=== PATIENT | female | born 1980 | race Two or more races ===

== ENCOUNTER → 2024-08-12 | Outpatient (CLI) | payer MEDICAID, SELFPAY ==
--- NOTE | 2024-08-12 14:30 | XR_ITS ---
Examination: Diagnostic digital mammography, unilateral, left Computer aided detection 3-D breast Tomosynthesis, unilateral Date and time of exam: August 12, 2024 1444 hours INDICATIONS: Mammogram October 17, 2023 20 mm focal asymmetry outer left breast CC view, 12 cm from the nipple Technique: Nonmagnified MLO, CC views of the left breast have been obtained, reconstructed from 3-D Tomosynthesis images. R2 computer aided detection program utilized for evaluation of suspicious masses and/or abnormal calcifications. 3-D Tomosynthesis images obtained. Findings: Scattered areas of fibroglandular density Benign calcifications. No interval suspicious masses Impression: BI-RADS category 2: Benign findings Recommend yearly follow-up mammography
== END | disposition home or self-care (01) ==
LOC: CDIM 14:34
PROVIDERS: PCP Physician Assistant; Referring Provider Physician Assistant; Visit Provider Physician Assistant
DX: R92.322 Mammographic fibroglandular density, left breast (principal); R92.8 Other abnormal and inconclusive findings on diagnostic imaging of breast
CPT/HCPCS: 77061; 77065; G0279

== ENCOUNTER 2024-08-16 14:51 | Emergency (ER) | payer MEDICAID, SELFPAY ==
[2024-08-16 15:07] VITALS: BP 159/101; PULSE 119; RESP 20; TEMP 38.8; O2SAT 92; BMI 37.5
--- NOTE | 2024-08-16 15:16 | XR_ITS ---
Examination: PA lateral chest 2 views TECHNIQUE: Upright PA lateral chest 2 views Exam date and time: 03/16/2024 1525 hours Comparison June 08, 2024 INDICATIONS: Shortness of breath coughing today. FINDINGS: Suspicious for early left base pneumonia obscuring detail left hemidiaphragm Right lung clear Normal heart size IMPRESSION: Suspicious for early left base pneumonia
--- NOTE | 2024-08-16 15:39 | EKG_ITS ---
[facility] Test Date: 2024-08-16 Pat Name: KATHERIN ALCARAZ Department: Room: - Gender: Female [employer]: : 1980 Requested By: Shyann Yan ([facility]) Samreen Order Number: [id number] Reading MD: Shyann Yan ([facility]) Samreen Measurements Intervals Leroy Rate: 114 P: 54 TX: 146 QRS: -13 QRSD: 86 T: 56 QT: 321 QTc: 444 Interpretive Statements SINUS TACHYCARDIA POSSIBLE ANTERIOR MYOCARDIAL INFARCTION , PROBABLY OLD [30 ms Q WAVE IN V3/V4, OR R < 0.2 mV IN V4] ABNORMAL RHYTHM ECG No previous ECG available for comparison /store/S0/[id number].pdf
--- NOTE | 2024-08-16 15:40 | PD.EDRME ---
Rapid Medical Screening Exam RME Arrival date/time: 08/16/24 14:51 43-year-old female presents emergency department complaints of shortness of breath, fever chest pain I have greeted and performed a focused initial assessment of this patient. Initial appropriate labs ordered at this time. A comprehensive ED assessment and evaluation of the patient and analysis of all test and completion of medical decision making process will be conducted by additional ED provider. Chief Complaint: Flu Like Symptoms Time Seen by Provider: 08/16/24 15:32 Vital signs: Vital Signs Temperature 101.9 F H 08/16/24 15:07 Pulse Rate 119 H 08/16/24 15:07 Respiratory Rate 20 08/16/24 15:07 Blood Pressure 159/101 H 08/16/24 15:07 Pulse Oximetry (%) 92 L 08/16/24 15:07 Oxygen Delivery Method Room Air 08/16/24 15:07
--- NOTE | 2024-08-16 15:42 | PC.NURSE ---
sepsis called at this time
[2024-08-16 15:52] VITALS: TEMP 38.8
[2024-08-16] MEDS: IBUPROFEN TAB 400 MG TABLET 800 MG PO (15:52)
[2024-08-16] MEDS: ACETAMINOPHEN 500 MG TABLET 1000 MG PO (15:52)
[2024-08-16 16:17] LABS: Lactate (Lactic Acid) 1.4 mMol/L (0.4-2.0)
[2024-08-16 16:22] LABS: Basophils # (Auto) 0.1 Thou/mm3 (0.0-0.2); Basophils % (Auto) 1 % (0-2.5); Eosinophils # (Auto) 0.2 Thou/mm3 (0.0-0.5); Eosinophils % (Auto) 2 % (0-10); Hemoglobin 12.9 g/dL (12.0-16.0); Immature Granulocytes % (Auto) 0 % (0-0); Immature Granulocytes Auto 0.02 Thou/mm3 (0.00-0.00); Lymphocytes % (Auto) 22 % (10-50); Mean Corpuscular HGB Conc 32.3 g/dl (31.0-37.0); Mean Corpuscular Hemoglobin 26.3 pg (25.0-35.0); Mean Corpuscular Volume 82 fL (80-100); Monocytes # (Auto) 0.9 Thou/mm3 (0.0-0.8); Monocytes % (Auto) 10 % (0-12); Neutrophils # (Auto) 6.1 Thou/mm3 (1.8-7.7); Neutrophils % (Auto) 66 % (37-80); Nucleated Red Blood Cell % 0 /100 WBC (0); Platelet Count 375 Thou/mm3 (140-440); RDW Standard Deviation 43.6 fL (36.4-46.3); Red Blood Count 4.91 Miln/mm3 (4.00-5.20); White Blood Count 9.2 Thou/mm3 (3.6-11.0)
[2024-08-16 16:48] LABS: Alanine Aminotransferase 15 U/L (10-49); Albumin, Serum 4.9 gm/dL (3.5-5.0); Albumin/Globulin Ratio 1.3 (1.2-2.2); Alkaline Phosphatase 71 U/L (46-116); Anion Gap 8 (7-16); Aspartate Amino Transferase 11 U/L (0-34); BUN/Creatinine Ratio 13 Ratio (12-20); Bilirubin,Total 0.5 mg/dL (0.3-1.2); Blood Urea Nitrogen 9 mg/dL (9-23); Calcium 9.5 mg/dL (8.3-10.6); Calcium (Corrected) 9.5 mg/dL (8.5-10.1); Carbon Dioxide 26.9 mMol/L (20.0-31.0); Chloride 98 mMol/L (98-107); Creatinine (Component) 0.7 mg/dL (0.6-1.3); Estimated Creatinine Clearance 107.8 mL/min (>60); Globulin 3.7 gm/dL (2.3-3.5); Glucose 113 mg/dL (74-106); Osmolality,Calculated 266 (275-295); Potassium 3.7 mMol/L (3.4-5.1); Procalcitonin < 0.04 ng/ml (0.0-0.49); Sodium 133 mMol/L (136-145); Total Protein 8.6 gm/dL (5.7-8.2); Troponin I < 0.002 ng/mL (0.0-0.045); eGFR > 60 See Note
--- NOTE | 2024-08-16 17:07 | PD.EDURI ---
Upper Respiratory Inf. RME/HPI General Chief Complaint: Flu Like Symptoms Stated Complaint: HEADACHE/COUGH/PAIN WITH BREATHING Time Seen by Provider: 08/16/24 15:32 Arrival date/time: 08/16/24 14:51 RME / HPI RME / HPI Narrative: 43-year-old female patient with significant history of hypertension diabetes mellitus, came in for evaluation regarding cough. Patient's been having cough for the last few days associated with pain on coughing, shortness of breath, and headache. Patient denies any other complaints no medications taken prior to arrival. Related Data Home Medications ?Medication ?Instructions ?Recorded ?Confirmed empagliflozin 5 mg-metformin 1,000 1 tab PO QDAY 10/18/23 10/18/23 mg tablet (Synjardy) simvastatin 40 mg tablet 40 mg PO QDAY 10/18/23 10/18/23 Previous Rx's ?Medication ?Instructions ?Recorded lisinopril 10 mg tablet 10 mg PO QDAY kitty presion #30 tabs 11/27/19 amoxicillin 875 mg-potassium 1 tab PO BID #14 tabs 06/08/24 clavulanate 125 mg tablet albuterol sulfate 90 mcg/actuation 2 inh inhalation Q6H PRN shortness 08/16/24 breath activated powder inhaler of breath or wheezing #1 ea (ProAir RespiClick) amoxicillin 875 mg-potassium 1 tab PO BID #14 tabs 08/16/24 clavulanate 125 mg tablet doxycycline hyclate 100 mg tablet 100 mg PO BID #14 tabs 08/16/24 ibuprofen 800 mg tablet 800 mg PO TID PRN pain #30 tabs 08/16/24 Allergies Allergy/AdvReac Type Severity Reaction Status Date / Time No Known Allergies Allergy Verified 08/16/24 14:59 Review of Systems Review of Systems Narrative Review of Systems: Review of system reviewed and within normal limits except mentioned in HPI ED Exam Narrative Physical exam: VITAL SIGNS: Reviewed. GENERAL APPEARANCE: Alert and interactive, follows commands, no acute distress, HEAD AND FACE: Non-traumatic. ENT: PERRL, pink conjunctivitis, eyelid no trauma, Mucous membrane moist. NECK: Supple, nontender, no nuchal rigidity. CHEST: No tenderness, no crepitus, no paradoxical movement, no retractions. LUNGS: Clear, well ventilated, symmetric, no rales, no wheezing, no ronchi, no stridor, good breath sounds bilaterally. HEART: Regular rate, regular rhythm, no murmur, no gallops. ABDOMEN: Soft, positive bowel sounds, nondistended, no guarding, nontender, no rebound, no masses, RECTAL: Deferred. GENITAL: Deferred. NEUROLOGICAL: Gross motor function intact sensory function intact, Appropriate for age. MUSCULOSKELETAL: low back nontender, full range of motion. EXTREMITIES: Nontender, full range of motion. SKIN: Color pink, dry, no rash, no lacerations, no abrasions, no contusions. LYMPHATICS: Deferred. Course Quality Measures none Orders Category Date Time Status Bedside COVID-19 Antigen Test NOW Care 08/16/24 15:14 Active Bedside Influenza A&B Antigen Test NOW Care 08/16/24 15:14 Active EKG (ED ONLY) *Do not use* NOW Care 08/16/24 15:40 Completed EKG (ED Only) Stat Exams 08/16/24 15:39 Ordered XR chest 2V Stat Exams 08/16/24 15:16 Completed CBC Stat Lab 08/16/24 15:54 Completed CMP [Comprehensive Metabolic Panel] Stat Lab 08/16/24 15:54 Completed Lactate (Lactic Acid) Stat Lab 08/16/24 15:54 Completed Procalcitonin Stat Lab 08/16/24 15:54 Completed Troponin I Stat Lab 08/16/24 15:54 Completed Acetaminophen Tab [Tylenol ES Tab] Med 08/16/24 15:14 Discontinued 1,000 mg PO X1 ONE Ibuprofen Tab [Motrin Tab] Med 08/16/24 15:14 Discontinued 800 mg PO X1 ONE Vital Signs Vital signs: Vital Signs Temperature 101.9 F H 08/16/24 15:07 Pulse Rate 119 H 08/16/24 15:07 Respiratory Rate 20 08/16/24 15:07 Blood Pressure 159/101 H 08/16/24 15:07 Pulse Oximetry (%) 92 L 08/16/24 15:07 Oxygen Delivery Method Room Air 08/16/24 15:07 Upper Respiratory Infection MDM Narrative MDM Narrative:: 43-year-old female patient with significant history of hypertension diabetes mellitus, came in for evaluation regarding cough. Patient's been having cough for the last few days associated with pain on coughing, shortness of breath, and headache. Patient denies any other complaints no medications taken prior to arrival. Laboratory workup all came back unremarkable. Swab negative for COVID-19 and influenza. Patient chest x-ray showed early left base pneumonia. Patient data External records reviewed:: None Clinical information provided by:: patient Social determinants that could affect healthcare access:: none Patient has the following chronic illnesses:: Hypertension diabetes mellitus How is presenting disease/condition affected by chronic disease/condition?: exacerbated by Evaluation data The following diagnostics were reviewed and interpreted by me:: lab results and radiology exam(s) Lab and/or radiology exams considered but not ordered:: none Interpretation Summary: Laboratory NORMAL NEGATIVE FOR COVID AND INFLUENZA. CHEST X-RAY SHOWED EARLY LEFT PATIENT MONIA Medications / Prescriptions Medications or Prescriptions considered but not ordered:: None Medication administrations:: Medication Administration History Discontinued Medications Acetaminophen (Acetaminophen 500 Mg Tablet) 1,000 mg PO X1 ONE Stop: 08/16/24 15:15 Last Admin: 08/16/24 15:52 Dose: 1,000 mg Documented By: OA Ibuprofen (Ibuprofen Tab 400 Mg Tablet) 800 mg PO X1 ONE Stop: 08/16/24 15:15 Last Admin: 08/16/24 15:52 Dose: 800 mg Documented By: OA Tylenol or Motrin Consultations Consultation(s) initiated? (list below): No Diagnosis Upper Respiratory Differential Diagnosis: viral infection and bronchitis Most likely diagnosis given after review of the tests above:: Pneumonia Admission Indicated Admission indicated?: not indicated Explain why admission is indicated or not indicated:: None Admission Request Was there a request for admission?: No Disposition Plan Disposition Plan: Discharge Discharge Attestation Discharge Attestation: The patient was given an opportunity to ask questions and understood the discharge instructions. Discharge instructions specifically effects, indications for sooner follow up or return to the emergency department, and the expected course of current diagnosis. Patient condition: Stable Discharge Plan Plan Patient Disposition: HOME (Self Care) Disposition Comment: stable Prescriptions/Referrals Prescriptions/Med Rec: New amoxicillin-pot clavulanate 875-125 mg tablet 1 tab PO BID Qty: 14 0RF doxycycline hyclate 100 mg tablet 100 mg PO BID Qty: 14 0RF ProAir RespiClick 90 mcg/actuation aerosol powdr breath activated 2 inh inhalation Q6H PRN (Reason: shortness of breath or wheezing) Qty: 1 0RF ibuprofen 800 mg tablet 800 mg PO TID PRN (Reason: pain) Qty: 30 0RF No Action lisinopril 10 mg tablet 10 mg PO QDAY Qty: 30 0RF simvastatin 40 mg Tablet 40 mg PO QDAY Synjardy 5-1,000 mg Tablet 1 tab PO QDAY amoxicillin-pot clavulanate 875-125 mg tablet 1 tab PO BID Qty: 14 0RF Referrals: Cari Clayton PA-C [Primary Care Provider] - In 1 week Problem List Clinical Impression: Pneumonia Patient/Caregiver Discharge Instructions Discharge Activity: activity as tolerated Education Materials: ED Pneumonia (Adult) Additional Instructions: Thank you for the opportunity for serving you today. You are stable for discharged . You are advised to: Follow-up with your PCP in 1 to 2 days Return to ED for worsening of symptoms Increase oral fluids Take medication as prescribed Print Language: New Zealander Stand Alone Forms: Alysha Award Info., Patient Portal Info Letter PA/JULIO Supervising Physician OPAL Supervising Physician: MD Jolene
[2024-08-16 17:31] VITALS: TEMP 37.2
[2024-08-16 17:32] VITALS: BP 124/82; PULSE 88; RESP 16; O2SAT 99
== END 2024-08-16 17:32 | disposition home or self-care (01) ==
PROVIDERS: Nurse Practitioner Primary Care; Emergency Provider Emergency Medicine; PCP Physician Assistant
DX: J18.9 Pneumonia, unspecified organism (principal); R00.0 Tachycardia, unspecified; I10 Essential (primary) hypertension
CPT/HCPCS: 36415; 71046; 80053; 83605; 84145; 84484; 85025; 93005; 99283; A9270

== ENCOUNTER → 2025-03-17 | Outpatient (CLI) | payer MEDICAID, SELFPAY ==
--- NOTE | 2025-03-17 14:15 | XR_ITS ---
Examination: Screening digital mammography, bilateral Computer aided detection 3-D breast Tomosynthesis, bilateral Date and time of exam: March 17, 2025 1334 hours Compared to mammograms dated to April 21, 2022 Indication: Screening Technique: Nonmagnified MLO, CC views of the breasts to been obtained, reconstructed from 3-D Tomosynthesis images. R2 computer aided detection program utilized for evaluation of suspicious masses and/or abnormal calcifications. 3-D Tomosynthesis images obtained. Findings: Scattered areas of fibroglandular density. Benign calcifications. No interval suspicious masses Impression: BI-RADS category II: Benign Findings. Recommend 1 year follow-up mammogram.
== END | disposition home or self-care (01) ==
PROVIDERS: Referring Provider Physician Assistant; Visit Provider Physician Assistant
DX: Z12.31 Encounter for screening mammogram for malignant neoplasm of breast (principal); R92.323 Mammographic fibroglandular density, bilateral breasts
CPT/HCPCS: 77063; 77067

== ENCOUNTER 2025-03-25 12:56 | Emergency (ER) | payer MEDICAID, SELFPAY ==
[2025-03-25 13:16] VITALS: BP 176/92; PULSE 73; RESP 18; TEMP 37; O2SAT 96
--- NOTE | 2025-03-25 13:18 | XR_ITS ---
Examination: CT brain head without contrast. 2-D sagittal coronal reconstructions Date and time of exam:March 25, 2025, 14.9 hours INDICATIONS: Onset generalized head pain and dizziness today CTDI: vol (mGy):52.1 DLP: (mGycm):1052 Technique: Multiple CT axial sections of the brain have been obtained, 5 mm slice thickness. Contrast has not been administered. 2-D sagittal, coronal reconstructions have been obtained Low dose protocols were performed. One or more of the following dose reduction techniques were used; automated exposure control, adjustment of the mA and/or KV according to patient size, use of iterative reconstruction technique. Findings: No significant ventricular enlargement. Intra-axial or extra-axial hemorrhage density is not seen. No mass effect or midline shift Basal cisterns are not remarkable. Fourth ventricle is midline. Cranial vault intact. Impression: Negative for acute hemorrhage, mass effect or midline shift Advise clinical correlation follow-up accordingly
--- NOTE | 2025-03-25 13:18 | PD.EDRME ---
Rapid Medical Screening Exam [facility] Arrival date/time: 03/25/25 12:56 44-year-old female presents to the Emergency Department for complaints of headache ongoing x 1 week Chief Complaint: Headache Vital signs: Vital Signs Temperature 98.6 F 03/25/25 13:16 Pulse Rate 73 03/25/25 13:16 Respiratory Rate 18 03/25/25 13:16 Blood Pressure 176/92 H 03/25/25 13:16 Pulse Oximetry (%) 96 03/25/25 13:16 Oxygen Delivery Method Room Air 03/25/25 13:16
[2025-03-25 14:06] LABS: Collection Type, Urine Clean Catch
[2025-03-25 14:11] LABS: Basophils # (Auto) 0.1 Thou/mm3 (0.0-0.2); Basophils % (Auto) 1 % (0-2.5); Eosinophils # (Auto) 0.2 Thou/mm3 (0.0-0.5); Eosinophils % (Auto) 3 % (0-10); Hemoglobin 11.6 g/dL (12.0-16.0); Immature Granulocytes Auto 0.01 Thou/mm3 (0.00-0.00); Mean Corpuscular Volume 81 fL (80-100); Monocytes # (Auto) 0.6 Thou/mm3 (0.0-0.8); Neutrophils # (Auto) 3.3 Thou/mm3 (1.8-7.7); Nucleated Red Blood Cell # 0.00 Thou/mm3 (0.00-0.00); Nucleated Red Blood Cell % 0 /100 WBC (0)
[2025-03-25 14:22] LABS: Hematocrit 38.7 % (36.0-46.0); Lymphocytes # (Auto) 3.0 Thou/mm3 (1.0-4.8); Lymphocytes % (Auto) 42 % (10-50); Mean Corpuscular HGB Conc 30.0 g/dl (31.0-37.0); Mean Corpuscular Hemoglobin 24.3 pg (25.0-35.0); Monocytes % (Auto) 8 % (0-12); Neutrophils % (Auto) 46 % (37-80); Platelet Count 376 Thou/mm3 (140-440); RDW Standard Deviation 49.1 fL (36.4-46.3); Red Blood Count 4.77 Miln/mm3 (4.00-5.20); White Blood Count 7.1 Thou/mm3 (3.6-11.0)
[2025-03-25 14:29] LABS: Alanine Aminotransferase 16 U/L (10-49); Albumin, Serum 4.4 gm/dL (3.5-5.0); Albumin/Globulin Ratio 1.3 (1.2-2.2); Alkaline Phosphatase 67 U/L (46-116); Anion Gap 8 (7-16); Aspartate Amino Transferase 17 U/L (0-34); BUN/Creatinine Ratio 13 Ratio (12-20); Bilirubin,Total 0.5 mg/dL (0.3-1.2); Blood Urea Nitrogen 9 mg/dL (9-23); Calcium 9.1 mg/dL (8.3-10.6); Calcium (Corrected) 9.1 mg/dL (8.5-10.1); Carbon Dioxide 25.6 mMol/L (20.0-31.0); Chloride 105 mMol/L (98-107); Creatinine (Component) 0.7 mg/dL (0.6-1.3); Estimated Creatinine Clearance 107.2 mL/min (>60); Globulin 3.3 gm/dL (2.3-3.5); Glucose 104 mg/dL (74-106); Osmolality,Calculated 276 (275-295); Potassium 3.7 mMol/L (3.4-5.1); Sodium 139 mMol/L (136-145); Total Protein 7.7 gm/dL (5.7-8.2); eGFR > 60 See Note
[2025-03-25 14:31] LABS: Bilirubin,Urine Negative (Negative); Blood,Urine Negative (Negative); Clarity,Urine Clear (Clear/Hazy); Color,Urine Lt-Yellow (Lt Yel-Yel); Culture Indicated,Urine Not Indicated; Glucose, Urine 4+ (Negative); Ketones,Urine Negative (Negative); Leukocyte Esterase,Urine Negative (Negative); Nitrite,Urine Negative (Negative); PH,Urine 6.0 (5.0-7.0); Protein,Urine Negative (Neg - Trace); RBC,Urine 1 /hpf (0-3); Specific Gravity,Urine 1.028 (1.001-1.035); Squamous Epithelial Cell,Urine < 1 /hpf (0-5); Urobilinogen,Urine Negative mg/dL (0.0-1.0); WBC,Urine 1 /hpf (0-5)
[2025-03-25 16:21] VITALS: BP 173/99; PULSE 79; RESP 19; TEMP 36.6; O2SAT 97
--- NOTE | 2025-03-25 16:48 | EDNOTE_ITS ---
<Statement entered by Angie Rahman MD - 03/25/25 17:45> As co-signing physician, I was present and available for consult prn. I concur with the plan and care as documented by the midlevel provider. ED Headache RME/HPI General Chief Complaint: Headache Stated Complaint: HEADACHE X 1 WK Time Seen by Provider: 03/25/25 16:40 Arrival date/time: 03/25/25 12:56 44-year-old female presents to the ED with complaint of a headache for the past week. She states her last menstrual period began 2 weeks ago and her menstrual cycles are regular. She denies any recent illness. She denies any numbness, tingling or weakness to her hands or feet. RME / HPI RME / HPI Narrative: 03/25/25 12:56 44-year-old female presents to the Emergency Department for complaints of headache ongoing x 1 week Related Data Home Medications ?Medication ?Instructions ?Recorded ?Confirmed empagliflozin 5 mg-metformin 1,000 1 tab PO QDAY 10/1810/18/23 mg tablet (Synjardy) simvastatin 40 mg tablet 40 mg PO QDAY 10/18/2310/18 Previous Rx's ?Medication ?Instructions ?Recorded lisinopril 10 mg tablet 10 mg PO QDAY kitty presion # 30 tabs 11/27/19 amoxicillin 875 mg-potassium 1 tab PO BID #14 tabs 08/20 clavulanate 125 mg tablet albuterol sulfate 90 mcg/actuation 2 inh inhalation Q6 H PRN shortness 08/16/24 breath activated powder inhaler of breath or wheezing #1 ea (ProAir RespiClick) amoxicillin 875 mg-potassium 1 tab PO BID #14 tabs clavulanate 125 mg tablet doxycycline hyclate 100 mg tablet 100 mg PO BID #14 ta bs 08/16/24 ibuprofen 800 mg tablet 800 mg PO TID PRN pain #30 t abs 08/16/24 meloxicam 15 mg tablet 15 mg PO QDAY #10 tabs 03/25 Allergies Allergy/AdvReac Type Severity Reaction Status Date / Time No Known Allergies Allergy Verified 03/25/25 13:02 Review of Systems Review of Systems Systems Reviewed: All systems reviewed, normal except as documented Past Medical History Past Medical History NEUROLOGIC: Negative Neurological Disorders or Seizures CARDIAC: Positive Cardiac Disorders, Hypercholesterolemia and Hypertension; Negative Congestive Heart Failure RESPIRATORY: Negative Chronic Obstructive Pulmonary Disease (COPD) GASTROINTESTINAL: Negative Gastrointestinal Disorders GENITOURINARY: Negative Genitourinary Disorders or Renal Disease REPRODUCTIVE: Positive Previous Pregnancies MUSCULOSKELETAL: Positive Musculoskeletal Disorders ENDOCRINE: Positive Endocrine Disorders and Diabetes Mellitus Type 2; Negative Diabetes Mellitus Type 1 HEMATOLOGIC: Negative Blood Disorders PSYCHO/SOCIAL: Positive Depression OTHER HISTORY: Negative Hospitalization, Falls, Blood Transfusions, Anesthesia Reactions, Measles, Mumps or Pertussis Surgical History SURGICAL: Positive Section Social History SMOKING STATUS: Never smoker ED Exam Narrative Physical exam: A&O, afebrile and non-toxic appearing, very pleasant Omani-speaking, 44-year-old female., no acute distress. Pupils are PERRL, EOMs intact, cranial nerves II through XII grossly intact. Equal back joiner strength, equal pedal push/pull. CMS intact to all 4 extremities. Lung are clear, RRR, Abdomen is non-distended. Moves all extremities well. Course Course Course Narrative: CBC reveals normal white count with minimally low hemoglobin of 11.6 with normal platelets. Chemistry panel is completely normal with no abnormalities noted. Urinalysis reveals 4+ glucose, otherwise negative. CT brain is negative for acute process, per radiologist. Urine hCG was ordered. Toradol 30 mg IM given prior to discharge. Quality Measures none Orders Category Date Time Status CT head/brain wo con Stat Exams 03/25/25 13:18 Completed CBC Stat Lab 03/25/25 13:44 Completed Comprehensive Metabolic Panel Stat Lab 03/25/25 13:44 Completed UA, C/S IF [Urinalysis, C/S if Indicated] Stat Lab 03/25/25 13:40 Completed Ketorolac Inj [Toradol Inj] Med 03/25/25 16:46 Discontinued 30 mg IM X1 ONE Vital Signs Vital signs: Vital Signs Temperature 98.6 F 03/25/25 13:16 Pulse Rate 73 03/25/25 13:16 Respiratory Rate 18 03/25/25 13:16 Blood Pressure 176/92 H 03/25/25 13:16 Pulse Oximetry (%) 96 03/25/25 13:16 Oxygen Delivery Method Room Air 03/25/25 13:16 Headache MDM Narrative MDM Narrative:: Symptoms, exam and diagnostic studies are consistent with: Headache, possibly hormonally related. Patient was discharged home in stable condition. Patient/family advised to follow-up with their PCP in 24-48 hours. Encouraged to return to the ED for any new or worsening symptoms. Patient data External records reviewed:: None Clinical information provided by:: patient Social determinants that could affect healthcare access:: none Patient has the following chronic illnesses:: Diabetes, hypercholesterolemia, hypertension. How is presenting disease/condition affected by chronic disease/condition?: uneffected by Evaluation data The following diagnostics were reviewed and interpreted by me:: lab results and radiology exam(s) Lab and/or radiology exams considered but not ordered:: N/A Interpretation Summary: As noted above Medications / Prescriptions Medications or Prescriptions considered but not ordered:: N/A Medication administrations:: Medication Administration History Discontinued Medications Ketorolac Tromethamine (Ketorolac Inj 60 Mg/2 Ml Vial) 30 mg IM X1 ONE Stop: 03/25/25 16:47 As noted above Consultations Consultation(s) initiated? (list below): No Diagnosis Differential diagnosis headache: migraine, tension headache, subarachnoid hemorrhage, headache and meningitis Most likely diagnosis given after review of the tests above:: Headache, possibly hormonally related. Admission Indicated Admission indicated?: not indicated Explain why admission is indicated or not indicated:: Patient is stable for discharge Admission Request Was there a request for admission?: No Admission Attestation Admission request attestation: N/A Disposition Plan Disposition Plan: Discharge Discharge Attestation Discharge Attestation: The patient and all family members were given an opportunity to ask questions and understood the discharge instructions. Discharge instructions specifically effects, indications for sooner follow up or return to the emergency department, and the expected course of current diagnosis. Patient condition: Stable Discharge Plan Plan Patient Disposition: HOME (Self Care) Discharge Disposition comment: Stable Prescriptions/Referrals Prescriptions/Med Rec: New meloxicam 15 mg tablet 15 mg PO QDAY Qty: 10 0RF No Action lisinopril 10 mg tablet 10 mg PO QDAY Qty: 30 0RF simvastatin 40 mg Tablet 40 mg PO QDAY Synjardy 5-1,000 mg Tablet 1 tab PO QDAY amoxicillin-pot clavulanate 875-125 mg tablet 1 tab PO BID Qty: 14 0RF amoxicillin-pot clavulanate 875-125 mg tablet 1 tab PO BID Qty: 14 0RF doxycycline hyclate 100 mg tablet 100 mg PO BID Qty: 14 0RF ProAir RespiClick 90 mcg/actuation aerosol powdr breath activated 2 inh inhalation Q6H PRN (Reason: shortness of breath or wheezing) Qty: 1 0RF ibuprofen 800 mg tablet 800 mg PO TID PRN (Reason: pain) Qty: 30 0RF Referrals: Cari Clayton PA-C [Primary Care Provider] - In 1 week Problem List Clinical Impression: Headache Patient/Caregiver Discharge Instructions Additional Instructions: Alexandre un seguimiento con [facility]ico de atencion primaria en 24 a 48 horas. Regresar al departamento de emergencias por cualquier sintoma nuevo o que empeore. Print Language: Omani Stand Alone Forms: Alysha Award Info., Patient Portal Info Letter PA/JULIO Supervising Physician PA/JULIO Supervising Physician: Dr. Rahman
[2025-03-25 17:09] LABS: HCG Qualitative,Urine Negative
[2025-03-25 17:28] VITALS: BP 144/99; PULSE 68; RESP 18; TEMP 36.6; O2SAT 95
[2025-03-25] MEDS: KETOROLAC INJ 60 MG/2 ML VIAL 30 MG IM (17:59)
== END 2025-03-25 18:03 | disposition home or self-care (01) ==
PROVIDERS: Nurse Practitioner Primary Care; Physician Assistant; Emergency Provider Emergency Medicine; PCP Physician Assistant
DX: R51.9 Headache, unspecified (principal); R42 Dizziness and giddiness; E78.00 Pure hypercholesterolemia, unspecified; I10 Essential (primary) hypertension
CPT/HCPCS: 36415; 70450; 80053; 81001; 81025; 85025; 96372; 99283; J1885